=== PATIENT | female | born 1995 | race Two or more races ===

== ENCOUNTER 2020-05-22 09:27 | Outpatient (CLI) | payer OTHER | END 2020-05-22 10:30 | disposition home or self-care (01) | LOC: OFIC 805 09:27 | PROVIDERS: ATTEND Otolaryngology Otology & Neurotology | DX: J34.3 Hypertrophy of nasal turbinates (principal); J30.89 Other allergic rhinitis; J34.89 Other specified disorders of nose and nasal sinuses ==

== ENCOUNTER 2020-06-12 11:25 | Day surgery (SDC) | payer OTHER ==
[~2020-06-12 11:25] MED LIST: ORTHO TRI-CYCL1 EACH PO
== END 2020-06-12 21:55 | disposition home or self-care (01) ==
LOC: CIR.AMB 11:25 → EDBD 11:25 → CIR.AMB 12:15
PROVIDERS: ATTEND Otolaryngology Otology & Neurotology
DX: J34.3 Hypertrophy of nasal turbinates (principal); Z20.828 Contact with and (suspected) exposure to other viral communicable diseases

== ENCOUNTER → 2020-06-22 | Outpatient (CLI) | payer OTHER | END | disposition home or self-care (01) | LOC: OFIC 805 16:18 | PROVIDERS: ATTEND Otolaryngology Otology & Neurotology | DX: J34.3 Hypertrophy of nasal turbinates (principal); J30.89 Other allergic rhinitis; J34.89 Other specified disorders of nose and nasal sinuses; J34.1 Cyst and mucocele of nose and nasal sinus ==